=== PATIENT | male | born 1950 | race Caucasian/White ===

== ENCOUNTER 2020-08-22 14:48 | Inpatient (IN) | payer MEDICARE, BC, MEDICAID ==
[~2020-08-22] VITALS: Ht 185.4 cm; Wt 116.6 kg
--- NOTE | 2020-08-22 14:58 | NUR ---
BIBRA 89 FROM HOME C/O SOB FOR 5 DAYS. BG 264. PT AAOX4, VSS. RR EVEN & UNLABORED. DENIES CP, DIZZINESS, N/V, WEAKNESS AT THIS TIME. O2 SAT 99% RA. PLACED ON RECREATIONAL AIDE, ST. AWAITING EVAL BY NAM. WILL CONT TO MONITOR.
--- NOTE | 2020-08-22 15:06 | NUR ---
DR SMALL AT BEDSIDE FOR EVAL.
--- NOTE | 2020-08-22 15:14 | NUR ---
[facility] ([facility], [facility]) [phone].
[2020-08-22 15:26] LABS: BASOPHILS % (AUTO) 0.1 % (0.0-2.0); HEMATOCRIT 36 % (39-51); HEMOGLOBIN 11.6 g/dL (13.5-17.5); LYMPHOCYTES # (AUTO) 0.2 /CMM (0.8-4.8); LYMPHOCYTES % (AUTO) 1.3 % (20.0-44.0); MEAN CORPUSCULAR HGB CONC 32 g/dl (31.0-36.0); MEAN CORPUSCULAR VOLUME 89 fL (80-96); MONOCYTES # (AUTO) 0.5 /CMM (0.1-1.30); MONOCYTES % (AUTO) 3.6 % (2.0-12.0); PLATELET COUNT (AUTO) 125 /CMM (150-450); RED BLOOD CELL COUNT(AUTO) 4.03 MIL/uL (4.5-6.0); WHITE BLOOD COUNT (AUTO) 14.8 K/uL (4.3-11.0)
[2020-08-22 15:34] LABS: CALCIUM, SERUM 8.4 mg/dL (8.5-10.1); CARBON DIOXIDE 16 mmol/L (21-32); CHLORIDE 104 mmol/L (98-107); CREATININE 3.2 mg/dL (0.6-1.3); GLUCOSE 296 mg/dL (74-106); POTASSIUM 5.6 mmol/L (3.5-5.1); SODIUM SERUM 136 mmol/L (136-145)
[2020-08-22 15:38] LABS: UREA NITROGEN, BLOOD 84 mg/dL (7-18)
[2020-08-22] MEDS ORDERED: FUROSEMIDE 20 MG/2 ML VIAL ONE (15:45)
[2020-08-22 15:48] LABS: ALANINE AMINOTRANSFERASE 129 U/L (12-78); ALBUMIN 2.9 g/dL (3.4-5.0); ALKALINE PHOSPHATASE 205 U/L (46-116); ASPARTATE AMINOTRANSFERASE 27 U/L (15-37); BILIRUBIN,DIRECT 0.3 mg/dL (0.0-0.2); BILIRUBIN,TOTAL 0.7 mg/dL (0.2-1.0); NT-PRO BNP 1311 pg/mL (0-125); TOTAL PROTEIN, SERUM 6.2 g/dL (6.4-8.2)
[2020-08-22] MEDS ORDERED: FUROSEMIDE 20 MG/2 ML VIAL IV ONE (16:00)
--- NOTE | 2020-08-22 16:16 | NUR ---
CALLED NURSING SUP FOR TELE BED.
--- NOTE | 2020-08-22 16:29 | NUR ---
NURSING SUP GAVE TELE BED 327-1. NURSE NAME TOMÁS.
--- NOTE | 2020-08-22 16:50 | NUR ---
REPORT GIVEN TO [place]ME [place] FOR DONNA.
[2020-08-22] MEDS ORDERED: INSU100I4 SQ (16:54)
[2020-08-22] MEDS ORDERED: PRED20TA PO ×2 (16:54)
[2020-08-22] MEDS ORDERED: DILT-2 PO (16:54)
[2020-08-22] MEDS ORDERED: INSU300I3 SQ (16:54)
[2020-08-22] MEDS ORDERED: PANT40TA49 PO (16:54)
[2020-08-22] MEDS ORDERED: CARV12.52 PO (16:54)
[2020-08-22] MEDS ORDERED: CLOP75TA15 PO (16:54)
[2020-08-22] MEDS ORDERED: FURO40TA5 PO (16:54)
[2020-08-22] MEDS ORDERED: ATOR40TA PO (16:54)
[2020-08-22] MEDS ORDERED: TAMS-12 PO (16:54)
[2020-08-22] MEDS ORDERED: LEVO125T8 PO (16:54)
[2020-08-22] MEDS ORDERED: DOFE125C4 PO (17:01)
[2020-08-22] MEDS ORDERED: FINA5TAB11 PO (17:01)
[2020-08-22] MEDS ORDERED: DOCU-141 PO (17:01)
[2020-08-22] MEDS ORDERED: PRAV40TA3 PO (17:02)
[2020-08-22] MEDS ORDERED: ONDANSETRON HCL/PF 4 MG/2 ML VIAL IVP PRN (18:30)
[2020-08-22] MEDS ORDERED: Z GUARD REMEDY 2 OZ OINT TP PRN (18:30)
[2020-08-22] MEDS ORDERED: HYDROCODONE/APAP 5/325MG TABLET PO PRN (18:30)
[2020-08-22] MEDS ORDERED: ACETAMINOPHEN 325 MG TABLET PO PRN (18:30)
[2020-08-22] MEDS ORDERED: MAGNESIUM HYDROXIDE 30 ML UDC PO PRN (18:30)
[2020-08-22] MEDS ORDERED: ZOLPIDEM TARTRATE 5 MG TABLET PO PRN (18:30)
[2020-08-22] MEDS ORDERED: MAG HYDROX/AL HYDROX/SIMETH 30 ML UDC PO PRN (18:30)
--- NOTE | 2020-08-22 19:30 | NUR ---
RN OPENING NOTE PATIENT SEEN AMBULATING TO BATHROOM, PATIENT A/O X 4. BREATHING EVEN AND UNLABORED, TOLERATING ROOM AIR AT 100% SATURATION, PATIENT STILL SOB. EDEMA PRESENT ON BLE +2. PATIENT'S IV ACCESS PATENT AND INTACT. NO COMPLAINS OF PAIN AT THIS TIME. SAFETY MEASURES IN PLACE: BED LOCKED AND IN LOWEST POSITION, SIDE RAILS UP, CALL LIGHT WITHIN REACH, HOB ELEVATED. WILL MONITOR PATIENT CLOSELY. Addendum: 08/22/20 at 2240 by KAYCEE WAYNE RN TELE MONITOR READS AFIB 110 BPM
[2020-08-22 20:00] VITALS: BP 129/67
--- NOTE | 2020-08-22 21:30 | NUR ---
PATIENT REQUESTING A CPAP HE USES ONE AT HOME WHEN GOING TO SLEEP. DR. GIRON NOTIFIED, ORDERED CPAP WITH RESPIRATORY RECOMMENDED SETTING. ALL ORDERS READ BACK AND CARRIED OUT.
[2020-08-22] MEDS: HEPARIN SODIUM, PORCINE 5000 UNITS/1 ML VIAL SQ SCH (21:50)
[2020-08-23] VITALS: BP 128/59
[2020-08-23 04:00] VITALS: BP 124/63
--- NOTE | 2020-08-23 04:00 | NUR ---
FOUND DRY PINPOINT RASHES ON PATIENT'S RIGHT HIP, LEFT LOWER LEG SCAB AND REDNESS, BRUISES ON THE ABDOMEN, SIDE TORSO, AND LEFT FOREARM. PATIENT UNABLE TO PROVIDE ME ANY INFORMATION WHERE ANY OF HIS SKIN ISSUES CAME FROM BESIDES THE BRUISES ON HIS ABDOMEN WHICH IS D/T SUBCUTANEOUS INJECTIONS PER PATIENT. PICTURES TAKEN AND IN THE CHART. WOUND CONSULT ORDERED.
[2020-08-23 05:52] LABS: EOSINOPHILS % (AUTO) 0.5 % (0.0-6.0); HEMATOCRIT 38 % (39-51); HEMOGLOBIN 12.4 g/dL (13.5-17.5); LYMPHOCYTES # (AUTO) 0.6 /CMM (0.8-4.8); LYMPHOCYTES % (AUTO) 4.4 % (20.0-44.0); MEAN CORPUSCULAR HGB CONC 33 g/dl (31.0-36.0); MEAN CORPUSCULAR VOLUME 88 fL (80-96); MONOCYTES # (AUTO) 1.6 /CMM (0.1-1.30); NEUTROPHILS % (AUTO) 83.1 % (43.0-81.0); PLATELET COUNT (AUTO) 154 /CMM (150-450); RED BLOOD CELL COUNT(AUTO) 4.31 MIL/uL (4.5-6.0); WHITE BLOOD COUNT (AUTO) 13.3 K/uL (4.3-11.0)
[2020-08-23 06:32] LABS: CALCIUM, SERUM 8.7 mg/dL (8.5-10.1); CARBON DIOXIDE 20 mmol/L (21-32); CHLORIDE 104 mmol/L (98-107); CREATININE 3.1 mg/dL (0.6-1.3); GLUCOSE 323 mg/dL (74-106); PHOSPHORUS 4.6 mg/dL (2.5-4.9); SODIUM SERUM 136 mmol/L (136-145)
--- NOTE | 2020-08-23 06:46 | NUR ---
RN CLOSING NOTE PATIENT IN BED AWAKE, A/O X 4. PATIENT DOES NOT COMPLAIN OF PAIN AT THIS TIME. DAILY WEIGHT IS 259.6 LBS. PATIENT IS ABLE TO AMBULATE INDEPENDENTLY TO THE BATHROOM. PATIENT STILL REPORTS SOB, STILL TOLERATES ROOM AIR AT 97% O2 SAT. ALL NEEDS MET AND ATTENDED. ALL ORDERS CARRIED OUT. SAFETY MEASURES MAINTAINED. WILL ENDORSE TO DAY SHIFT NURSE FOR DONNA. Addendum: 08/23/20 at 0651 by KAYCEE WAYNE RN PATIENT'S TELE READING SHOWS AFIB 115 BPM.
[2020-08-23 06:53] LABS: CHOLESTEROL 183 mg/dL (<200); HDL CHOLESTEROL 106 mg/dL (40-60); LDL 55 mg/dL (0-99); THYROID STIMULATING HORMONE 0.476 uIU/mL (0.358-3.74); TRIGLYCERIDES 117 mg/dL (30-150); UREA NITROGEN, BLOOD 84 mg/dL (7-18)
[2020-08-23] MEDS ORDERED: PANTOPRAZOLE 40 MG TABLET.DR PO SCH (07:30)
--- NOTE | 2020-08-23 07:40 | NUR ---
TELE/RN OPENING NOTES RECEIVED PATIENT ON BED AWAKE ALERT AND ORIENTED X4. PATIENT IN ROOM AIR SATURATING WELL. PATIENT IN NO APPARENT RESPIRATORY DISTRESS NOTED. NO COMPLAINED OF PAIN NOTED AT THIS TIME. TELE MONITOR PLACED READING AFIB 110-135 BPM. WILL CONTINUE TO MONITOR.
[2020-08-23 08:00] VITALS: BP 111/82
[2020-08-23] MEDS: HEPARIN SODIUM, PORCINE 5000 UNITS/1 ML VIAL SQ SCH ×2 (08:34→20:50)
[2020-08-23 09:32] LABS: BAND % (MANUAL) 2 % (0.0-5.0); EOSINOPHILS % (MANUAL) 4 % (0-4); LYMPHOCYTES % (MANUAL) 8 % (16-48); MONOCYTES % (MANUAL) 4 % (0-11.0); NEUTROPHILS % (MANUAL) 82 (42-76)
--- NOTE | 2020-08-23 09:57 | NUR ---
WOUND CARE CONSULT: PT PRESENTS WITH RT GROIN RASH AND SURGICAL WOUND TO RT LOWER BACK, PRESENT ON ADMISSION. RECOMMENDATIONS MADE FOR SKIN PROTECTION AND CARE OF RASH. DISCUSSED WITH NURSING STAFF. DR CONNIE FOWLER NOTIFIED OF SURGICAL CONSULT FOR LOWER BACK. PT STATES HAD BLADDER STIMULATOR IMPLANTED [address] BENSON EXAMINED PT. IN AGREEMENT WITH PLAN OF CARE. Addendum: 08/23/20 at 0958 by GRICEL RENAE WNDNU Amended: Links added.
[2020-08-23 12:00] VITALS: BP 125/75
[2020-08-23 13:13] LABS: BILIRUBIN,URINE NEGATIVE (NEGATIVE); COLOR,URINE STRAW (YELLOW); LEUKOCYTE ESTERASE ,URINE MODERATE (NEGATIVE); NITRITE, URINE NEGATIVE (NEGATIVE); PROTEIN,URINE 30 mg/dl (NEGATIVE); UGLUCOSE NEGATIVE (NEGATIVE); UROBILINOGEN,URINE 0.2 EU/dL (0.2)
[2020-08-23] MEDS: CLOTRIMAZOLE 1% 15 GM TUBE TP SCH ×2 (14:02→16:21)
[2020-08-23] MEDS ORDERED: DEXTROSE 50%-WATER 50 ML DISP.SYRIN IV PRN (14:30)
[2020-08-23 14:49] LABS: RBC,URINE TOO NUMEROUS TO COUN /HPF (0-2)
[2020-08-23 14:50] LABS: BACTERIA,URINE 2+ /HPF (None Seen); SQUAMOUS EPITHELIAL CELL,UR Few /HPF (None Seen); WBC,URINE TOO NUMEROUS TO COUN /HPF (0-3)
[2020-08-23 16:00] VITALS: BP 153/60
[2020-08-23] MEDS: INSULIN REGULAR, HUMAN 100 UNIT/ML 3 ML VIAL SQ PRN ×4 (16:33→22:16)
[2020-08-23] MEDS: BLOOD SUGAR DIAGNOSTIC 1 EACH STRIP IN SCH ×2 (17:54→22:17)
--- NOTE | 2020-08-23 19:13 | NUR ---
TELE/RN OPENING NOTES RECEIVED PATIENT ON BED AWAKE ALERT AND ORIENTED X4. PATIENT IN ROOM AIR SATURATING WELL. PATIENT IN NO APPARENT RESPIRATORY DISTRESS NOTED. NO COMPLAINED OF PAIN NOTED AT THIS TIME. TELE MONITOR PLACED READING UNCONTROLLED AFIB 130 BPM. SEEN AND EXAMINED BY MD WITH ORDERS MADE CARRIED OUT.ALL DUE MEDICATIONS WAS GIVEN. IV ACCESS AT RIGHT AC # 20G PATENT AND INTACT.SAFETY PRECAUTIONS WAS IN PLACED. BED IN LOWEST POSITION AND LOCKED. SIDERAILS UP X2. PATIENT WAS DIABETIC AND NEED TO RECONCILE HOME MEDICATIONS, BLOOD SUGAR 16:26 450MG/DL 10 UNIT WAS GIVEN, RECHECKED 1726 435MG/DL 10 UNIT INSULIN WAS GIVEN RECHECKED 1830 379MG/DL 10UNITS INSULIN WAS GIVEN DR. BENSON WAS AWARE. CALL LIGHT WITHIN REACH. WILL ENDORSED TO SEARCH ENGINE OPTIMIZATION STRATEGIST FOR DONNA.
--- NOTE | 2020-08-23 19:30 | NUR ---
RN OPENING NOTE PATIENT IS RESTING, EASILY AWAKENED. PATIENT DOES NOT COMPLAIN OF ANY PAIN AT THIS TIME. TOLERATES ROOM AIR, BREATHING EVEN AND UNLABORED. TELE MONITOR READS UNCONTROLLED AFIB 115 AT THIS TIME. IV ACCESS STILL PATENT AND INTACT, WOUND CARE TX FOR HIS RASHES ENDORSED TO ME. SAFETY MEASURES IN PLACE: CALL LIGHT WITHIN REACH, BED IN LOCKED AND LOWEST POSITION, SIDE RAILS UP. WILL MONITOR PATIENT CLOSELY. Addendum: 08/23/20 at 2017 by KAYCEE WAYNE RN F/U WITH DR. BENSON REGARDING MED RECON AT 1930
[2020-08-23 20:00] VITALS: BP 127/57
[2020-08-23] MEDS ORDERED: DILTIAZEM HCL CD 120 MG PO SCH (20:30)
--- NOTE | 2020-08-23 20:30 | NUR ---
PHARMACY ([facility]) CALLED TO INFORM ME THAT WE DO NOT SUPPLY THE ANTI ARRHYTHMIC DRUG DOFETILIDE 125 MCG THAT THE PATIENT TAKES AT HOME AND THAT THE SYNTHROID 225 MCG HOME MED THAT PATIENT TAKES IS TOO HIGH OF A DOSE. [facility] INFORMED DR. BENSON REGARDING SYNTHROID AND I'VE NOTIFIED DR. BENSON ABOUT FINDING A REPLACEMENT FOR THE DOFETILIDE.
[2020-08-23] MEDS: CARVEDILOL 12.5 MG TABLET PO SCH (20:52)
[2020-08-23] MEDS ORDERED: DOFETILIDE 125 MCG PO SCH (21:00)
[2020-08-23] MEDS ORDERED: INSULIN GLARGINE, 100 UNIT/ML CARTRIDGE SQ SCH (22:00)
[2020-08-23] MEDS ORDERED: ATORVASTATIN 10 MG TABLET PO SCH (22:00)
--- NOTE | 2020-08-23 22:20 | NUR ---
BS 292 MG/DL, GAVE 6 UNITS COVERAGE ALONG WITH SCHEDULED LANTUS. PROVIDED PATIENT SOME CRACKERS AND ORANGE JUICE FOR SNACKS.
--- NOTE | 2020-08-23 22:49 | NUR ---
RT pt refused noc bipap tonight. notified lloyd rubio
[2020-08-24] VITALS: BP 121/67
--- NOTE | 2020-08-24 00:20 | NUR ---
RN NOTE PER DR. BENSON, SUBSTITUTE BY WHAT THE PHARMACY RECOMMENDS, ACCORDING TO PHARMACY, THEY DO NOT HAVE SUBSTITUTION FOR DOFETILIDE. INFORMED DR. GIRON OF THE SITUATION. ORDERED DILTIAZEM 120 MG NOW PO, AND INCREASED SCHEDULED DILTIAZEM DOSE TO 240 MG DILTIAZEM PO. RECOMMENDS TO NOTIFY QUILL LAYER IN AM. MONITOR PATIENT'S BP. ORDERS READ BACK AND CARRIED OUT.
[2020-08-24 00:23] LABS: CREATININE, URINE 28.4 MG/DL (30.0-125.0); URINE TOTAL PROTEIN 38.2 mg/dL (0-11.9)
[2020-08-24] MEDS ORDERED: DILTIAZEM HCL CD 120 MG PO ONE (01:00)
[2020-08-24 04:00] VITALS: BP 105/57
[2020-08-24 06:30] LABS: BASOPHILS % (AUTO) 0.2 % (0.0-2.0); EOSINOPHILS % (AUTO) 1.2 % (0.0-6.0); HEMATOCRIT 35 % (39-51); HEMOGLOBIN 11.7 g/dL (13.5-17.5); LYMPHOCYTES # (AUTO) 0.5 /CMM (0.8-4.8); LYMPHOCYTES % (AUTO) 4.6 % (20.0-44.0); MEAN CORPUSCULAR HGB CONC 34 g/dl (31.0-36.0); MEAN CORPUSCULAR VOLUME 87 fL (80-96); MONOCYTES # (AUTO) 1.8 /CMM (0.1-1.30); MONOCYTES % (AUTO) 16.5 % (2.0-12.0); NEUTROPHILS # (AUTO) 8.4 /CMM (1.8-8.9); NEUTROPHILS % (AUTO) 77.5 % (43.0-81.0); PLATELET COUNT (AUTO) 134 /CMM (150-450); RED BLOOD CELL COUNT(AUTO) 3.99 MIL/uL (4.5-6.0); WHITE BLOOD COUNT (AUTO) 10.9 K/uL (4.3-11.0)
[2020-08-24 06:50] LABS: CALCIUM, SERUM 8.3 mg/dL (8.5-10.1); CARBON DIOXIDE 20 mmol/L (21-32); CHLORIDE 107 mmol/L (98-107); CREATININE 2.9 mg/dL (0.6-1.3); GLUCOSE 122 mg/dL (74-106); MAGNESIUM 1.9 mg/dL (1.8-2.4); POTASSIUM 4.5 mmol/L (3.5-5.1); SODIUM SERUM 139 mmol/L (136-145)
[2020-08-24 07:10] LABS: UREA NITROGEN, BLOOD 81 mg/dL (7-18)
--- NOTE | 2020-08-24 07:15 | NUR ---
KNITTER MACHINE OPENING NOTE RECEIVED PATIENT IN BED. A/O X4. ON ROOM AIR, TOLERATING WELL. NO SOB NOTED. NO S/S OF RESPIRATORY DISTRESS. TELE READING SHOWS UNCONTROLLED A-FIB. DENIES ANY PAIN OR DISCOMFORT AT THIS TIME. IV ACCESS ON R AC #20 G, INTACT. SAFETY MEASURES MAINTAINED. BED IN LOWEST POSITION, BRAKES LOCKED. SIDE RAILS UP X2. CALL LIGHT WITHIN REACH. WILL CONTINUE PLAN OF CARE.
--- NOTE | 2020-08-24 07:20 | NUR ---
RN OPENING NOTE PATIENT IS AWAKE. PATIENT DOES NOT COMPLAIN OF ANY PAIN AT THIS TIME. TOLERATES ROOM AIR, BREATHING EVEN AND UNLABORED. TELE MONITOR READS UNCONTROLLED AFIB 108 AT THIS TIME. IV ACCESS STILL PATENT AND INTACT, WOUND CARE TX PROVIDED TO Anamaria DAUGHERTY. SAFETY MEASURES MAINTAINED. ALL NEEDS MET AND ATTENDED. ALL ORDERS CARRIED OUT. ENDORSED HOME MED SITUATION AND LEVOTHYROXINE TO DAY SHIFT NURSE. ENDORSED CARE TO DAY SHIFT NURSE FOR DONNA. Addendum: 08/24/20 at 0742 by KAYCEE WAYNE RN CLOSING NOTE
[2020-08-24] MEDS: BLOOD SUGAR DIAGNOSTIC 1 EACH STRIP IN SCH ×3 (07:24→17:10)
[2020-08-24] MEDS ORDERED: LEVOTHYROXINE SODIUM 125 MCG TABLET PO SCH ×2 (07:30→18:15)
[2020-08-24] MEDS ORDERED: PANTOPRAZOLE 40 MG TABLET.DR PO SCH (07:30)
[2020-08-24 08:00] VITALS: BP 117/80
[2020-08-24] MEDS ORDERED: DILTIAZEM HCL CD 240 MG PO SCH (09:00)
[2020-08-24] MEDS ORDERED: predniSONE 20 MG TABLET PO SCH ×2 (09:00→18:00)
[2020-08-24] MEDS ORDERED: DAKINS HALF STRENGTH (0.25%) 480 ML BOTTLE TOP SCH (09:00)
[2020-08-24] MEDS ORDERED: DOCUSATE SODIUM 100 MG CAPSULE PO SCH (09:00)
[2020-08-24] MEDS ORDERED: FINASTERIDE (5 MG) 5 MG TABLET PO SCH (09:00)
[2020-08-24] MEDS ORDERED: CLOPIDOGREL BISULFATE 75 MG TABLET PO SCH (09:00)
[2020-08-24] MEDS: CARVEDILOL 12.5 MG TABLET PO SCH (09:25)
[2020-08-24] MEDS: HEPARIN SODIUM, PORCINE 5000 UNITS/1 ML VIAL SQ SCH (09:27)
[2020-08-24] MEDS ORDERED: APIXABAN 2.5 MG TABLET PO SCH (10:30)
[2020-08-24 11:11] LABS: BAND % (MANUAL) 1 % (0.0-5.0); EOSINOPHILS % (MANUAL) 2 % (0-4); LYMPHOCYTES % (MANUAL) 4 % (16-48); MONOCYTES % (MANUAL) 16 % (0-11.0); NEUTROPHILS % (MANUAL) 77 (42-76)
[2020-08-24 12:00] VITALS: BP 94/62
[2020-08-24] MEDS: CLOTRIMAZOLE 1% 15 GM TUBE TP SCH ×2 (12:19→17:08)
[2020-08-24] MEDS: INSULIN REGULAR, HUMAN 100 UNIT/ML 3 ML VIAL SQ PRN ×2 (12:41→17:10)
[2020-08-24 16:00] VITALS: BP 115/62
[2020-08-24] MEDS ORDERED: CARVEDILOL 12.5 MG TABLET PO SCH (17:00)
[2020-08-24 17:04] VITALS: BP 115/62
--- NOTE | 2020-08-24 17:54 | NUR ---
RN NOTE PATIENT STATED THAT HE WANTS TO GO AMA AND WILL TRANSFER TO [facility]. MS IS AWARE. PT SIGNED THE AMA FORM. DISCHARGE INSTRUCTIONS WAS GIVEN AND VERBALIZED UNDERSTANDING. REMOVED IV LINES AND ID WRISTBAND. REFUSED PHOTO TO BE TAKEN. BP 115/62 IN 70 RR 20 T 98.5 SA02 99% PT WILL BE BINDING CUTTER BY HIS DAUGHTER, ARTHUR. Addendum: 08/24/20 at 1808 by ANGELA SHEIKH RN DR CONNIE CHEN IS AWARE
[2020-08-24] MEDS ORDERED: TAMSULOSIN 0.4 MG CAP.SR.24H PO SCH (18:00)
--- NOTE | 2020-08-24 18:12 | NUR ---
RN NOTE PATIENT WAS DISCHARGED. CISCO VICK ACCOMPANIED THE PT AND THE DTR [facility].
== END 2020-08-24 18:10 | disposition left against medical advice (07) | DRG 641 ==
LOC: ER 14:50 → TELE 16:55 → UNDODISIN 08-24 18:02
PROVIDERS: ADMIT Student in an Organized Health Care Education/Training Program
DX: E87.70 Fluid overload, unspecified (principal); E44.0 Moderate protein-calorie malnutrition; N18.4 Chronic kidney disease, stage 4 (severe); N11.9 Chronic tubulo-interstitial nephritis, unspecified; I12.9 Hypertensive chronic kidney disease with stage 1 through stage 4 chronic kidney disease, or unspecified chronic kidney disease; E11.22 Type 2 diabetes mellitus with diabetic chronic kidney disease; I48.91 Unspecified atrial fibrillation; E11.65 Type 2 diabetes mellitus with hyperglycemia; D64.9 Anemia, unspecified; Z88.1 Allergy status to other antibiotic agents; Z88.0 Allergy status to penicillin; D72.829 Elevated white blood cell count, unspecified; R74.01 Elevation of levels of liver transaminase levels; S31.000A Unspecified open wound of lower back and pelvis without penetration into retroperitoneum, initial encounter; X58.XXXA Exposure to other specified factors, initial encounter; Y92.9 Unspecified place or not applicable
CPT/HCPCS: 36415; 71045-TC; 76770-TC; 78582; 80048-TC; 80061-TC; 80076-TC; 81001; 82570-TC; 82962-TC; 83735-TC; 83880; 84100-TC; 84155-TC; 84439-TC; 84443-TC; 84484-TC; 85025-TC; 85730-TC; 87081-TC; 87086-TC; 93307-TC; 93970-TC; 94799-TC; A9540; A9567; C9803; G0378; J1644; J1815; J1940